=== PATIENT | male | born 1935 | race Caucasian/White ===

== ENCOUNTER 2024-12-30 11:23 | Inpatient (IN) | payer MEDICARE, OTHER ==
[2024-12-30] MEDS ORDERED: Ondansetron PF 4 MG/2 ML Vial IVP PRN (14:27)
[2024-12-30] MEDS ORDERED: Senokot S 8.6-50 MG TAB PO PRN (14:27)
[2024-12-30] MEDS ORDERED: Glucagon 1 MG/ML KIT IM PRN (14:27)
[2024-12-30] MEDS ORDERED: Acetaminophen 325 MG TAB PO PRN (14:27)
[2024-12-30] MEDS ORDERED: Dextrose 50% Abboject 50 ML SYRINGE SLOW IVP PRN (14:27)
[2024-12-30 15:06] VITALS: BMI 25.7
[2024-12-30 15:58] LABS: Troponin I 0.875 ng/mL (< 0.028)
[2024-12-30] MEDS: Enoxaparin 80 MG (0.8 mL) SYRINGE SC SCH (16:44)
[2024-12-30 19:14] LABS: Troponin I 0.802 ng/mL (< 0.028)
[2024-12-30] MEDS: Melatonin 3 MG TAB PO PRN (21:32)
[2024-12-30] MEDS: Famotidine 20 MG TAB PO SCH (21:32)
[2024-12-31 04:55] LABS: #Basophils 0.08 10x3/uL (0.0-0.2); #Eosinophils 0.21 10x3/uL (0.0-0.5); #Monocytes 0.74 10x3/uL (0.0-1.1); #Neutrophils 4.53 10x3/uL (1.5-8.4); %Basophils 1.2 % (0.0-2.0); %Eosinophils 3.1 % (0.0-6.0); %Lymphocytes 18.0 % (18.0-47.0); %Monocytes 10.9 % (0.0-10.0); %Neutrophils 66.4 % (40.0-75.0); Hematocrit 32.9 % (38.8-50.0); Hemoglobin 10.7 g/dL (13.5-17.5); Mean Corpuscular Hemoglobin 28.5 pg (27.0-33.0); Mean Corpuscular Volume 87.7 fL (81.2-95.1); Platelet Count 178 10x3/uL (150-450); Red Blood Cell (RBC) Count 3.75 10x6/uL (4.32-5.72); White Blood Cell (WBC) Count 6.82 10x3/uL (3.5-10.5)
[2024-12-31 05:12] LABS: Anion Gap 12 mmol/L (10-20); BUN (Urea Nitrogen) 35 mg/dL (8.4-25.7); Calc. Creatinine Clearance 27 mL/min (70-130); Calcium 8.4 mg/dL (7.8-10.44); Carbon Dioxide 19 mmol/L (23-31); Cardiac Risk 3.0 (Less than 4.5); Chloride 111 mmol/L (98-107); Cholesterol 132 mg/dl (< 200 Desired); Glucose 113 mg/dL (83-110); HDL Cholesterol 44 mg/dL (>60 Neg Risk); LDL Cholesterol, Calculated 70 mg/dL; Potassium 4.7 mmol/L (3.5-5.1); Sodium 137 mmol/L (136-145); Triglycerides 90 mg/dL (Less than 150)
[2024-12-31 05:24] LABS: Troponin I 0.850 ng/mL (< 0.028)
[2024-12-31] MEDS ORDERED: Enoxaparin 40 MG (0.4 mL) SYRINGE SC SCH (09:00)
[2024-12-31] MEDS ORDERED: Enoxaparin 80 MG (0.8 mL) SYRINGE SC SCH (09:00)
[2024-12-31] MEDS: Enoxaparin 80 MG (0.8 mL) SYRINGE SC SCH (09:21)
[2024-12-31 15:00] LABS: Anion Gap 13 mmol/L (10-20); BUN (Urea Nitrogen) 29 mg/dL (8.4-25.7); Calc. Creatinine Clearance 35 mL/min (70-130); Calcium 9.0 mg/dL (7.8-10.44); Carbon Dioxide 20 mmol/L (23-31); Chloride 111 mmol/L (98-107); Glucose 113 mg/dL (83-110); Potassium 4.7 mmol/L (3.5-5.1); Sodium 139 mmol/L (136-145)
[2024-12-31] MEDS: Famotidine 20 MG TAB PO SCH (21:07)
[2025-01-01 06:52] LABS: Anion Gap 10 mmol/L (10-20); BUN (Urea Nitrogen) 20 mg/dL (8.4-25.7); Calc. Creatinine Clearance 46 mL/min (70-130); Calcium 8.5 mg/dL (7.8-10.44); Carbon Dioxide 21 mmol/L (23-31); Chloride 115 mmol/L (98-107); Glucose 117 mg/dL (83-110); Potassium 4.6 mmol/L (3.5-5.1); Sodium 141 mmol/L (136-145)
[2025-01-01] MEDS ORDERED: Losartan 50 MG TAB PO SCH (09:00)
[2025-01-01 09:12] VITALS: BP 162/76; TEMP 97.4
[2025-01-01] MEDS: Aspirin 81 mg Enteric Coated Tablet PO SCH (09:40)
== END 2025-01-01 11:59 | disposition home or self-care (01) | DRG 682 ==
LOC: CSHTELE 13:24 → OBSVTOIN 12-31 10:35
PROVIDERS: ADMIT Internal Medicine; ATTEND Nurse Practitioner Acute Care
DX: N17.9 Acute kidney failure, unspecified (principal); I21.A1 Myocardial infarction type 2; E11.9 Type 2 diabetes mellitus without complications; E78.5 Hyperlipidemia, unspecified; I10 Essential (primary) hypertension; K21.9 Gastro-esophageal reflux disease without esophagitis; E11.40 Type 2 diabetes mellitus with diabetic neuropathy, unspecified; Z90.49 Acquired absence of other specified parts of digestive tract; Z98.41 Cataract extraction status, right eye; Z98.42 Cataract extraction status, left eye; Z98.52 Vasectomy status; Z98.890 Other specified postprocedural states; Z82.49 Family history of ischemic heart disease and other diseases of the circulatory system; Z79.82 Long term (current) use of aspirin; Z79.84 Long term (current) use of oral hypoglycemic drugs; Z79.899 Other long term (current) drug therapy; N20.0 Calculus of kidney
CPT/HCPCS: 36415; 36416; 74176; 76770; 80048; 80061; 84484; 85025; 93306; 96372; G0378; J1650; J1815; J7030; J7120